=== PATIENT | male | born 1985 | race Caucasian/White ===

== ENCOUNTER 2017-11-19 18:23 | Emergency (ER) | payer OTHER ==
[~2017-11-19] VITALS: Ht 167.6 cm; Wt 87.0 kg
[2017-11-19 18:45] VITALS: BP 126/72; PULSE 92; RESP 15; TEMP 97.6; O2SAT 100
[2017-11-19] MEDS ORDERED: ZIPRASIDONE MESYLATE 20 MG VIAL IM STA (20:04)
[2017-11-19] MEDS ORDERED: ZIPRASIDONE MESYLATE 20 MG VIAL IM ONE (20:05)
[2017-11-19] MEDS ORDERED: diphenhydrAMINE HCL 50 MG/ML VIAL ONE (20:06)
--- NOTE | 2017-11-19 20:12 | PD ---
HPI Chief Complaint: Psychiatric Symptoms Time Seen by Provider: 20:04 Travel History International Travel<30 days: No Contact w/Intl Traveler<30days: No Traveled to known affect area: No History of Present Illness HPI This is a 32-year-old male who presents under Berman act initiated by [place] [employer]. 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 Taylor did not give any specifics as to how he would kill himself, but he was observed lying in the road and telling people to shoot him." Upon my examination the patient is currently laying on his bed with his fitted bedcovers wrapped around his head and face and body. He refuses any examination or additional information for history of present illness. When asked to remove the fitted bedsheet from his head and face he shouted obscenities. Additional staff were called and the patient was told that we would have to remove the fitted bedsheet from his face and head because it is unsafe and he became immediately aggressive, agitated, case picker his bed and threw it at the door. Geodon and Benadryl have been ordered. History is limited because of the above. [facility] Past Medical History Medical History: Denies Significant Hx Past Surgical History Surgical History: No Previous Surgery Social History Alcohol Use: No Tobacco Use: Yes Substance Use: No Allergies-Medications (Allergen,Severity, Reaction): Coded Allergies: No Known Allergies (Unverified , 11/19/17) Review of Systems ROS Limitations: Refused, Combative Except as stated in HPI: all other systems reviewed are Neg Physical Exam Exam Limitations: Refused, Combative Narrative GENERAL: This is a white male who is lying on the bed with a fitted bedsheet covering his whole body. After he removed himself from the bed it appears that he is alert and oriented but combative and agitated. Additional elements of physical examination have been refused by the patient. NEUROLOGICAL: Awake and alert. No obvious cranial nerve deficits. Motor grossly within normal limits. Normal speech. PSYCHIATRIC: Agitated and aggressive. Data Data Last Documented VS Vital Signs Date Time Temp Pulse Resp B/P (MAP) Pulse Ox O2 Delivery O2 Flow Rate FiO2 11/19/17 18:45 97.6 92 15 126/72 (90) 100 Orders Orders Complete Blood Count With Diff (11/19/17 18:59) Comprehensive Metabolic Panel (11/19/17 18:59) Thyroid Stimulating Hormone (11/19/17 18:59) Psych Screen (11/19/17 18:59) Drug Screen, Random Urine (11/19/17 18:59) Alcohol (Ethanol) (11/19/17 18:59) Salicylates (Aspirin) (11/19/17 18:59) Tylenol (Acetaminophen) (11/19/17 18:59) Restraints Violent (11/19/17 19:25) Ziprasidone Inj (Geodon Inj) (11/19/17 20:04) Diphenhydramine Inj (Benadryl Inj) (11/19/17 20:15) Ziprasidone Inj (Geodon Inj) (11/19/17 20:05) Diphenhydramine Inj (Benadryl Inj) (11/19/17 20:06) MDM Medical Decision Making Medical Screen Exam Complete: Yes Emergency Medical Condition: Yes Medical Record Reviewed: Yes Differential Diagnosis Adjustment reaction, acute psychosis, substance-induced mood disorder, schizophrenia Narrative Course Mental health screening discussed with the patient. Psychiatric screen ordered. The patient is medically clear for psychiatric disposition. Diagnosis Primary Impression: Medical clearance for psychiatric admission Chadwick Carrillo Nov 19, 2017 20:12
[2017-11-19] MEDS ORDERED: diphenhydrAMINE HCL 50 MG/ML VIAL IM ONE (20:15)
[2017-11-19 23:40] VITALS: RESP 16
[2017-11-20 06:32] VITALS: BP 150/65; PULSE 58; RESP 18
[2017-11-20 10:47] VITALS: BP 135/57; PULSE 75; RESP 18; TEMP 98.4; O2SAT 96
[2017-11-20 18:53] VITALS: BP 130/61; PULSE 64; RESP 20; TEMP 98.6; O2SAT 98
[2017-11-20] MEDS ORDERED: diphenhydrAMINE HCL 50 MG/ML VIAL ONE (19:16)
[2017-11-20] MEDS ORDERED: diphenhydrAMINE HCL 50 MG/ML VIAL IM ONE (19:30)
[2017-11-20 23:52] VITALS: BP 128/60; PULSE 65; RESP 16; O2SAT 98
[2017-11-21 06:42] VITALS: BP 133/62; PULSE 55; RESP 16; O2SAT 99
--- NOTE | 2017-11-21 10:53 | PD ---
History of Present Illness Chief Complaint: Psychiatric Symptoms Time Seen by Provider: 10:45 Travel History International Travel<30 Days: No Contact w/Intl Traveler<30days: No Known affected area: No Legal Status Legal Status: Berman Act Berman Act Signed By: Shweta Vann History of Present Illness: History of Present Illness HPI This is a 32-year-old, , single, homeless male with no reported psychiatric history, with reported history of substance use disorder mainly amphetamines and cocaine, who presents under Berman act initiated by [place] [employer]. 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 Taylor did not give any specifics as to how he would kill himself, but he was observed lying in the road and telling people to shoot him." At the time that the patient was placed under the Berman act he was under the influence of substances. Upon arrival at the ED the patient was uncooperative and agitated. He responded very poorly to redirection. When he attempted to complete medical clearance he became agitated and aggressive towards staff members and required ETO Geodon and Benadryl. Patient was placed on [facility] waiting list for possible disposition. During the time that he was here in [facility] he was intermittently restless and engage in activities such as throwing history against the wall because he did like the breakfast that was provided. EMR is reviewed. No previous contact with [facility] psychiatry Department. Current toxicology is positive for amphetamines, cocaine, cannabinoids. Patient is seen this morning. He is alert, oriented, calm. His speech is clear and logical. He states "I made some stupid statements yesterday because I just needed a place. If I wanted to hurt myself I would not say anything to anyone. It was raining and hailing outside." There is no evidence of any psychosis, no aileen, or hypomania. Patient does not appear to be responding to internal stimuli. The patient denies any suicidal or homicidal ideation, intent or plan. He further denies that he has any problems as substances and states that he simply" just buys drugs and uses drugs". He shows was interested in seeking treatment for his substance use disorder. Strong antisocial personality traits are noted in his interactions with staff. [facility] Past Medical History Medical History: Denies Significant Hx Past Surgical History Surgical History: No Previous Surgery Psychiatric History Psychiatric History Hx Psychiatric Treatment: Denies any. Denies any previous suicide attempts. Denies any self-injurious behaviors. History of Inpatient Treatment: No Guns or firearms in home: No Social History Single, homeless, unemployed. 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 Hx Alcohol Use: No Hx Tobacco Use: Yes Hx Substance Use: Yes (POLYSUBSTANCE) Substance Use Type: Marijuana, Amphetamines-Stimulants, Cocaine Hx of Substance Use Treatment: No Family Psychiatric History Denies Allergies-Medications (Allergen,Severity, Reaction): Coded Allergies: No Known Allergies (Unverified , 11/19/17) Review of Systems Psychiatric: DENIES: Anxiety, Confusion, Mood changes, Depression, Hallucinations, Agitation, Suicidal Ideation, Homicidal Ideation, Delusions Mental Status Examination Appearance: Appropriate, Disheveled Consciousness: Alert Orientation: x4 Motor Activity: Normal gait Speech: Unremarkable Language: Adequate Fund of Knowledge: Adequate Attention and Concentration: Adequate Memory: Unremarkable Mood: Appropriate, Oppositional Affect: Appropriate Thought Process & Associations: Intact Thought Content: Appropriate Hallucination Type: None Delusion Type: None Suicidal Ideation: No Suicidal Plan: No Suicidal Intention: No Homicidal Ideation: No Homicidal Plan: No Homicidal Intention: No Insight: Poor Judgment: Impulsive MDM Medical Decision Making Medical Record Reviewed: Yes Assessment/Plan This is a 32-year-old, , single, homeless male with no reported psychiatric history, with reported history of substance use disorder mainly amphetamines and cocaine, who presents under Berman act initiated by [place] [employer]. 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 Taylor did not give any specifics as to how he would kill himself, but he was observed lying in the road and telling people to shoot him." At the time that the patient was placed under the Berman act he was under the influence of substances. His toxicology report is positive for amphetamines, cocaine, cannabinoids. The patient was allowed to sober up here clinically under supervision. He presented no suicidality. He did present some behavioral issues including throwing his food around but these are as a result of his antisocial personality traits and not as a result of a mental illness. The patient denies any suicidal or homicidal ideation, intent or plan. He is not psychotic and is not manic. He is requesting to be discharge. He shows no interest in refuse any information regarding substance abuse treatment. At this time he does not meet criteria for Berman act. The Berman act is lifted. Patient is psychiatrically clear to be discharge from the ED. Orders Orders Diet Regular Basic (11/20/17 Lunch) Diet Regular Basic (11/20/17 Dinner) Diphenhydramine Inj (Benadryl Inj) (11/20/17 19:30) Diphenhydramine Inj (Benadryl Inj) (11/20/17 19:16) Diet Regular Basic (11/21/17 Breakfast) Diet Regular Basic (11/21/17 Lunch) Results Vital Signs Date Time Temp Pulse Resp B/P (MAP) Pulse Ox O2 Delivery O2 Flow Rate FiO2 11/21/17 06:42 55 16 133/62 (85) 99 11/20/17 23:52 65 16 128/60 (82) 98 Room Air 11/20/17 18:53 98.6 64 20 130/61 (84) 98 Diagnosis Primary Impression: Amphetamine abuse Additional Impressions: Cocaine abuse Substance induced mood disorder Psychiatrically Cleared: Yes Med/ Other Pt Specific Info: No Meds Exist/No RX given Disposition: 01 DISCHARGE HOME Condition: Stable Problem Qualifiers Ingrid Delaney Nov 21, 2017 10:53
--- NOTE | 2017-11-21 10:53 | PD ---
Physical Exam Date Seen by Provider: Nov 21, 2017 Time Seen by Provider: 10:51 Narrative 32-year-old male previously Berman acted and cleared medically for psychiatric evaluation, has been seen and evaluated by the psychiatric staff and deemed psychiatrically stable for discharge at this time. Patient remains medically stable at this time. Psychiatric follow-up will be based on the psychiatric note. Data Data Last Documented VS Vital Signs Date Time Temp Pulse Resp B/P (MAP) Pulse Ox O2 Delivery O2 Flow Rate FiO2 11/21/17 06:42 55 16 133/62 (85) 99 11/20/17 23:52 Room Air 11/20/17 18:53 98.6 Orders Orders Complete Blood Count With Diff (11/19/17 18:59) Comprehensive Metabolic Panel (11/19/17 18:59) Thyroid Stimulating Hormone (11/19/17 18:59) Psych Screen (11/19/17 18:59) Drug Screen, Random Urine (11/19/17 18:59) Alcohol (Ethanol) (11/19/17 18:59) Salicylates (Aspirin) (11/19/17 18:59) Tylenol (Acetaminophen) (11/19/17 18:59) Restraints Violent (11/19/17 19:25) Ziprasidone Inj (Geodon Inj) (11/19/17 20:04) Diphenhydramine Inj (Benadryl Inj) (11/19/17 20:15) Ziprasidone Inj (Geodon Inj) (11/19/17 20:05) Diphenhydramine Inj (Benadryl Inj) (11/19/17 20:06) Diet Regular Basic (11/20/17 Breakfast) Diet Regular Basic (11/20/17 Lunch) Diet Regular Basic (11/20/17 Dinner) Diphenhydramine Inj (Benadryl Inj) (11/20/17 19:30) Diphenhydramine Inj (Benadryl Inj) (11/20/17 19:16) Diet Regular Basic (11/21/17 Breakfast) Diet Regular Basic (11/21/17 Lunch) Labs Laboratory Tests Test 11/20/17 02:35 Urine Opiates Screen NEG Urine Barbiturates Screen NEG Urine Amphetamines Screen POS Urine Benzodiazepines Screen NEG Urine Cocaine Screen POS Urine Cannabinoids Screen POS MDM Medical Record Reviewed: Yes Supervised Visit with YARON: Yes Narrative Course 32-year-old male previously Berman acted and cleared medically for psychiatric evaluation, has been seen and evaluated by the psychiatric staff and deemed psychiatrically stable for discharge at this time. Patient remains medically stable at this time. Psychiatric follow-up will be based on the psychiatric note. Diagnosis Primary Impression: Medical clearance for psychiatric admission Referrals: [facility] Patient Instructions: General Instructions Disposition: 01 DISCHARGE HOME Condition: Stable John Pinon Nov 21, 2017 10:53
== END 2017-11-21 11:29 | disposition home or self-care (01) ==
LOC: NEPJ 18:23
DX: F15.10 Other stimulant abuse, uncomplicated (principal); F14.10 Cocaine abuse, uncomplicated; F60.2 Antisocial personality disorder
CPT/HCPCS: 80307; 96372; 96374; 99285; J1200; J3486

== ENCOUNTER 2017-11-26 01:20 | Emergency (ER) | payer OTHER ==
[~2017-11-26] VITALS: Ht 175.3 cm; Wt 87.0 kg
[2017-11-26] MEDS ORDERED: HALOPERIDOL LACTATE 5 MG/ML AMP IM ONE (02:15)
[2017-11-26] MEDS ORDERED: LORazepam 2 MG/ML VIAL IM ONE (02:15)
[2017-11-26 02:23] VITALS: BP 127/81; PULSE 78; RESP 20; TEMP 97.8; O2SAT 98
--- NOTE | 2017-11-26 02:45 | PD ---
HPI Chief Complaint: Psychiatric Symptoms Time Seen by Provider: 02:08 Travel History International Travel<30 days: No Contact w/Intl Traveler<30days: No Traveled to known affect area: No History of Present Illness HPI 32-year-old white male presents emergency department under Berman act by PD. Patient has a history of substance abuse. He has been injecting methamphetamine. The patient was found to be acutely confused and psychotic. He was placed under Berman act and brought to the ER. The patient here is refusing to answer any questions. He is not cooperating. He became aggressive towards staff during his intake and was taken down by security. The patient is medicated with Haldol 10 mg and Ativan 2 mg IM for his agitation. Violent restraints have been ordered. [facility] Past Medical History Narrative Medical IV substance abuse Diminished Hearing: No Immunizations Current: Yes Tetanus Vaccination: Unknown Influenza Vaccination: No Past Surgical History Surgical History: No Previous Surgery Social History Alcohol Use: Yes Tobacco Use: Yes Substance Use: Yes (POLYSUBSTANCE) Allergies-Medications (Allergen,Severity, Reaction): Coded Allergies: No Known Allergies (Unverified , 11/26/17) Reported Meds & Prescriptions Reported Meds & Active Scripts Active No Active Prescriptions or Reported Medications Review of Systems ROS Limitations: Uncooperative, Psychotic Physical Exam Narrative GENERAL: Well-nourished, well-developed patient. Patient is uncooperative. SKIN: Warm and dry. HEAD: Normocephalic and atraumatic. EYES: No scleral icterus. No injection or drainage. ENT: No nasal drainage noted. Mucous membranes pink. Airway patent. NECK: Supple, trachea midline. Moves head freely without obvious discomfort. CARDIOVASCULAR: Regular rate and rhythm without murmurs, gallops, or rubs. RESPIRATORY: Breath sounds equal bilaterally. No accessory muscle use. GASTROINTESTINAL: Abdomen soft, non-tender, nondistended. EXTREMITIES: No cyanosis or edema. BACK: Nontender without obvious deformity. No CVA tenderness. NEURO: Patient is alert and oriented. no sensorimotor deficits. Nonfocal. Normal speech. PSYCH: Acutely psychotic and uncooperative. Data Data Last Documented VS Vital Signs Date Time Temp Pulse Resp B/P (MAP) Pulse Ox O2 Delivery O2 Flow Rate FiO2 11/26/17 02:23 97.8 78 20 127/81 (96) 98 Room Air Orders Orders Complete Blood Count With Diff (11/26/17 02:08) Comprehensive Metabolic Panel (11/26/17 02:08) Thyroid Stimulating Hormone (11/26/17 02:08) Psych Screen (11/26/17 02:08) Haloperidol Inj (Haldol Inj) (11/26/17 02:15) Lorazepam Inj (Ativan Inj) (11/26/17 02:15) Restraints Violent (11/26/17 02:08) Drug Screen, Random Urine (11/26/17 02:08) MDM Medical Decision Making Medical Screen Exam Complete: Yes Emergency Medical Condition: Yes Medical Record Reviewed: Yes Differential Diagnosis MDM: High Differential diagnoses: Schizophrenia, schizoaffective disorder, bipolar, anxiety, depression, adjustment reaction, mood disorder NOS, ODD, depressive disorder NOS, dementia, dementia with agitation, psychosis NOS, substance induced mood disorder, DMDD, Asperger syndrome, infection,electrolyte abnormality, malingering. Narrative Course Mental health screening discussed with the patient. Psychiatric screen ordered. The patient is uncooperative and combative. He was taken down by security on intake. The patient is accompanied by PD in handcuffs. Due to the patient's aggressive behavior and agitation and psychotic presentation violent restraints have been ordered. He is also medicated with Haldol 10 mg and Ativan 2 mg IM. Once the patient becomes more compliant laboratory tests will be performed. The patient was de-escalated and he was not placed into physical restraints. He was medicated and has now been compliant. Medical staff will collect his blood and urine. This is medical clearance for psychiatric admission, substance induced psychosis , polysubstance abuse Diagnosis Primary Impression: Medical clearance for psychiatric admission Additional Impressions: Substance-induced psychosis Polysubstance abuse Scripts No Active Prescriptions or Reported Meds Condition: Taran Christie Nov 26, 2017 02:45
[2017-11-26 03:50] LABS: AUTOMATED NEUTROPHIL # 4.2 TH/MM3 (1.8-7.7); BASOPHIL # 0.1 TH/MM3 (0-0.2); BASOPHIL % 0.6 % (0.0-2.0); EOSINOPHIL # 0.1 TH/MM3 (0-0.4); EOSINOPHIL % 1.4 % (0.0-4.0); HEMATOCRIT 41.8 % (39.0-51.0); HEMOGLOBIN 14.2 GM/DL (13.0-17.0); LYMPH % 43.4 % (9.0-44.0); LYMPHOCYTE # 3.7 TH/MM3 (1.0-4.8); MEAN CELL VOLUME 88.9 FL (80.0-100.0); MEAN CORPUSCULAR HEMOGLOBIN 30.2 PG (27.0-34.0); MEAN CORPUSCULAR HGB CONC 33.9 % (32.0-36.0); MONO % 5.8 % (0.0-8.0); MONOCYTE # 0.5 TH/MM3 (0-0.9); NEUT % 48.8 % (16.0-70.0); PLATELET COUNT 357 TH/MM3 (150-450); RED CELL DISTRIBUTION WIDTH 13.2 % (11.6-17.2); WHITE BLOOD COUNT 8.6 TH/MM3 (4.0-11.0)
[2017-11-26 04:11] LABS: ALBUMIN 3.4 GM/DL (3.4-5.0); AST (GOT) 17 U/L (15-37); BICARBONATE 29.1 MEQ/L (21.0-32.0); BLOOD UREA NITROGEN 12 MG/DL (7-18); CALCIUM 8.6 MG/DL (8.5-10.1); CHLORIDE 103 MEQ/L (98-107); CREATININE 0.72 MG/DL (0.60-1.30); GLOMERULAR FILTRATION RATE 127 ML/MIN (>89); GLUCOSE,RANDOM 79 MG/DL (74-106); SODIUM (NA) 141 MEQ/L (136-145)
[2017-11-26 04:22] LABS: ALKALINE PHOSPHATASE 59 U/L (45-117); ALT (GPT) 22 U/L (12-78); TOTAL BILIRUBIN ADULT 0.2 MG/DL (0.2-1.0)
[2017-11-26 11:06] VITALS: BP 122/80; PULSE 72; RESP 16; TEMP 98; O2SAT 98
[2017-11-26 11:20] VITALS: BP 132/79; PULSE 97; RESP 22
[2017-11-26] MEDS ORDERED: diphenhydrAMINE HCL 50 MG/ML VIAL ONE (15:47)
[2017-11-26] MEDS ORDERED: HALOPERIDOL LACTATE 5 MG/ML AMP ONE (15:47)
[2017-11-26] MEDS ORDERED: LORazepam 2 MG/ML VIAL ONE (15:48)
[2017-11-26] MEDS ORDERED: LORazepam 2 MG/ML VIAL IM STA (15:53)
[2017-11-26] MEDS ORDERED: HALOPERIDOL LACTATE 5 MG/ML AMP IM STA (15:53)
[2017-11-26] MEDS ORDERED: diphenhydrAMINE HCL 50 MG/ML VIAL IM STA (15:53)
[2017-11-26 19:11] VITALS: BP 124/74; PULSE 65; RESP 20; TEMP 98.8; O2SAT 97
[2017-11-27 02:15] VITALS: BP 139/85; PULSE 98; RESP 18; TEMP 98.1; O2SAT 99
[2017-11-27 06:47] VITALS: BP 142/62; PULSE 65; RESP 18; O2SAT 98
--- NOTE | 2017-11-27 09:05 | PD ---
Physical Exam Time Seen by Provider: 09:[address] Zuluaga has evaluated patient, lifted the Berman act and cleared patient for discharge. Data Data Last Documented VS Vital Signs Date Time Temp Pulse Resp B/P (MAP) Pulse Ox O2 Delivery O2 Flow Rate FiO2 11/27/17 06:47 65 18 142/62 (88) 98 Room Air 11/27/17 02:15 98.1 Orders Orders Complete Blood Count With Diff (11/26/17 02:08) Comprehensive Metabolic Panel (11/26/17 02:08) Thyroid Stimulating Hormone (11/26/17 02:08) Psych Screen (11/26/17 02:08) Haloperidol Inj (Haldol Inj) (11/26/17 02:15) Lorazepam Inj (Ativan Inj) (11/26/17 02:15) Restraints Violent (11/26/17 02:08) Drug Screen, Random Urine (11/26/17 02:08) Diet Regular Basic (11/26/17 Breakfast) Diet Regular Basic (11/26/17 Lunch) Haloperidol Inj (Haldol Inj) (11/26/17 15:47) Diphenhydramine Inj (Benadryl Inj) (11/26/17 15:47) Lorazepam Inj (Ativan Inj) (11/26/17 15:48) Haloperidol Inj (Haldol Inj) (11/26/17 15:53) Lorazepam Inj (Ativan Inj) (11/26/17 15:53) Diphenhydramine Inj (Benadryl Inj) (11/26/17 15:53) Diet Regular Basic (11/26/17 Dinner) Diet Regular Basic (11/27/17 Breakfast) Labs Laboratory Tests Test 11/26/17 03:40 11/26/17 10:10 White Blood Count 8.6 TH/MM3 Red Blood Count 4.70 MIL/MM3 Hemoglobin 14.2 GM/DL Hematocrit 41.8 % Mean Corpuscular Volume 88.9 FL Mean Corpuscular Hemoglobin 30.2 PG Mean Corpuscular Hemoglobin Concent 33.9 % Red Cell Distribution Width 13.2 % Platelet Count 357 TH/MM3 Mean Platelet Volume 7.0 FL Neutrophils (%) (Auto) 48.8 % Lymphocytes (%) (Auto) 43.4 % Monocytes (%) (Auto) 5.8 % Eosinophils (%) (Auto) 1.4 % Basophils (%) (Auto) 0.6 % Neutrophils # (Auto) 4.2 TH/MM3 Lymphocytes # (Auto) 3.7 TH/MM3 Monocytes # (Auto) 0.5 TH/MM3 Eosinophils # (Auto) 0.1 TH/MM3 Basophils # (Auto) 0.1 TH/MM3 CBC Comment DIFF FINAL Differential Comment Blood Urea Nitrogen 12 MG/DL Creatinine 0.72 MG/DL Random Glucose 79 MG/DL Total Protein 7.0 GM/DL Albumin 3.4 GM/DL Calcium Level 8.6 MG/DL Alkaline Phosphatase 59 U/L Aspartate Amino Transf (AST/SGOT) 17 U/L Alanine Aminotransferase (ALT/SGPT) 22 U/L Total Bilirubin 0.2 MG/DL Sodium Level 141 MEQ/L Potassium Level 3.7 MEQ/L Chloride Level 103 MEQ/L Carbon Dioxide Level 29.1 MEQ/L Anion Gap 9 MEQ/L Estimat Glomerular Filtration Rate 127 ML/MIN Thyroid Stimulating Hormone 3rd Gen 1.090 uIU/ML Urine Opiates Screen NEG Urine Barbiturates Screen NEG Urine Amphetamines Screen NEG Urine Benzodiazepines Screen NEG Urine Cocaine Screen POS Urine Cannabinoids Screen POS MDM Supervised Visit with YARON: No Narrative Course Dr. Zuluaga has evaluated patient, lifted the Berman act and cleared patient for discharge. Patient contracts safety. Denies suicidal or homicidal ideations. Patient will be provided community resource packet to [facility] for follow-up. Has friends and family for support. Patient was medically cleared by alternate provider prior to psych screening. Patient has been evaluated by psychiatry and and is now cleared for discharge. Diagnosis Primary Impression: Polysubstance abuse Additional Impression: Substance-induced psychosis Referrals: [facility] (Out patient) [facility] Primary Care Physician Psychiatrist [facility] Patient Instructions: General Instructions, Mood Disorders (ED), Polysubstance Abuse (ED) Additional Instruction: Contract safety to your self and others Stop using drugs Follow-up with psychiatry Follow-up with primary care provider Follow-up with [facility] Return to the emergency department immediately with worsening of symptoms Med/Other Pt SpecificInfo: No Change to Meds, No Meds Exist/No RX given Scripts No Active Prescriptions or Reported Meds Disposition: DISCHARGE HOME Condition: Stable Fanta Miranda Nov 27, 2017 09:05
--- NOTE | 2017-11-27 11:49 | PD.PSY.CON ---
Provisional Diagnosis Admission Date Alloy I. Polysubstance dependence including cocaine, cannabis, amphetamines Alloy II. Antisocial personality disorder Alloy III. No significant medical history Alloy IV. Homelessness Alloy V. 56 History of Present Illness Service Psychiatry Consult Requested By Psychiatry Reason for Consult Under [facility] act Primary Care Physician Unknown HPI The patient was seen this morning at 7:30 AM. The patient is a 32-year-old man, single, unemployed, homeless, with psychiatric history of polysubstance dependence including amphetamine, cocaine, cannabis, antisocial personality disorder, who was seen and clear in the ER a week ago with a similar presentation today, no significant medical history, who presents emergency department under [facility] act by PD. He reports that he has been injecting methamphetamine, using cocaine and cannabis. The patient was found to be acutely confused and psychotic. He was placed under [facility] act and brought to the ER. The patient here is refusing to answer any questions. Upon his arrival to the ER the patient became violent and hostile, he was medicated with Haldol 5, Benadryl 50 and Ativan 2. Today for psychiatric evaluation the patient continues to be irritable, very verbally disrespectful, requesting breakfast. Patient states that "get me out of this for can place, but give me with food first". He denies suicidal and homicidal ideation, he denies visual and auditory hallucinations. He also requests to be medicated with Ativan. He reports daily use of amphetamines, cocaine and cannabis. Review of Systems Constitutional: DENIES: Diaphoretic episodes, Fatigue, Fever, Weight gain, Weight loss, Chills, Dizziness, Change in appetite, Night Sweats Endocrine: DENIES: Heat/cold intolerance, Polydipsia, Polyuria, Polyphagia Eyes: DENIES: Blurred vision, Diplopia, Eye inflammation, Eye pain, Vision loss , Photosensitivity, Double Vision Ears, nose, mouth, throat: DENIES: Tinnitus, Hearing loss, Vertigo, Nasal discharge, Oral lesions, Throat pain, Hoarseness, Ear Pain, Running Nose, Epistaxis, Sinus Pain, Toothache, Odynophagia Respiratory: DENIES: Apneas, Cough, Snoring, Wheezing, Hemoptysis, Sputum production, Shortness of breath Cardiovascular: DENIES: Chest pain, Palpitations, Syncope, Dyspnea on Exertion , PND, Lower Extremity Edema, Orthopnea, Claudication Gastrointestinal: DENIES: Abdominal pain, Black stools, Bloody stools, Constipation, Diarrhea, Nausea, Vomiting, Difficulty Swallowing, Anorexia Genitourinary: DENIES: Sexual dysfunction, Urinary frequency, Urinary incontinence, Urgency, Hematuria, Dysuria, Nocturia, Penile Discharge, Testicular Pain, Testicular Swelling Musculoskeletal: DENIES: Joint pain, Muscle aches, Stiffness, Joint Swelling, Back pain, Neck pain Integumentary: DENIES: Abnormal pigmentation, Nail changes, Pruritus, Rash Hematologic/lymphatic: DENIES: Bruising, Lymphadenopathy Immunologic/allergic: DENIES: Eczema, Urticaria Neurologic: DENIES: Abnormal gait, Headache, Localized weakness, Paresthesias, Seizures, Speech Problems, Tremor, Poor Balance Psychiatric: DENIES: Anxiety, Confusion, Mood changes, Depression, Hallucinations, Agitation, Suicidal Ideation, Homicidal Ideation, Delusions Past Family Social History Coded Allergies: No Known Allergies (Unverified , 11/26/17) No Active Prescriptions or Reported Meds Physical Exam Vital Signs Vital Signs Date Time Temp Pulse Resp B/P (MAP) Pulse Ox O2 Delivery O2 Flow Rate FiO2 11/27/17 10:00 11/27/17 06:47 65 18 98 Room Air 11/27/17 02:15 98.1 Mental Status Examination Appearance: Appropriate Consciousness: Alert Orientation: x4 Motor Activity: Normal gait Speech: Unremarkable Language: Adequate Fund of Knowledge: Adequate Attention and Concentration: Adequate Memory: Unremarkable Mood: Appropriate Affect: Irritable Thought Process & Associations: Intact Thought Content: Appropriate Hallucination Type: None Delusion Type: None Suicidal Ideation: No Suicidal Plan: No Suicidal Intention: No Homicidal Ideation: No Homicidal Plan: No Homicidal Intention: No Insight: Fair Judgment: Impulsive Assessment & Plan Problem List: (1) Polysubstance (excluding opioids) dependence ICD Codes: F19.20 - Other psychoactive substance dependence, uncomplicated Assessment & Plan: Any evidence of neuropsychiatric symptoms require an immediate psychiatric intervention or psychiatric hospitalizations. The patient denies suicidal or homicidal ideation, he denies visual and auditory hallucinations. Recent psychotic behavior for which the patient was brought on the [facility] at his very well explained by cocaine/amphetamines, cannabis intoxication. During my assessment the patient presents as strong cluster B traits that definitely have clinical significance. Patient most probably suffer of antisocial personality disorder. He does not meet criteria for involuntary psychiatric admission at this moment. Motivation psychoeducation provided. Berman act will be lifted Assessment & Plan Estimated LOS: days Kyle Del Rosario MD Nov 27, 2017 11:49
== END 2017-11-27 10:02 | disposition home or self-care (01) ==
LOC: NEPD 01:20 → NEPJ 11-27 10:02
DX: F15.259 Other stimulant dependence with stimulant-induced psychotic disorder, unspecified (principal); R45.4 Irritability and anger; F60.2 Antisocial personality disorder; Z72.0 Tobacco use; Z59.0 Homelessness
CPT/HCPCS: 80053; 80307; 84443; 85025; 96372; 99284; J1200; J1630; J2060